=== PATIENT | female | born 1960 | race Caucasian/White ===

== ENCOUNTER 2016-11-27 21:12 | Emergency (ER) | payer OTHER ==
[2016-11-27 21:43] VITALS: BP 111/79
--- NOTE | 2016-11-27 22:48 | Emergency Department Report ---
Chief Complaint: Laceration/Recheck/Suture Stated Complaint: REMOVAL SUTURES Time Seen by Provider: 11/27/16 22:44 - HPI History of Present Illness: Patient presents for 3 suture removal from right thumb - ROS Review of Systems: All other systems unremarkable except documentation in HPI - Exam Vital Signs: Vital Signs 11/27/16 21:36 Temperature 98.6 F Pulse Rate 69 Respiratory 16 Rate Blood Pressure 111/79 O2 Sat by Pulse 100 Oximetry Physical Exam: Gen: A male well-developed and nourished, no apparent distress noted, ambulatory. Cardiovascular: Heart sounds present S1-S2, no murmur, gallop, edema or ectopy noted, 2+ pulses upper and lower extremities Respiratory: Chest symmetry with respirations, lungs clear to auscultate upper and lower lobes, respirations even and unlabored, no rales, rhonchi, crackles noted. Skin: Clean, dry, intact. Right thumb no swelling, redness, increasing. Wound is healing well. Psych: AxOx3, answers questions appropriately, mood full range, affect normal, normal speech and tone. MSE screening note: Focused history and physical exam performed. Due to findings the following was ordered: box nailer to remove 3 sutures to right thumb ED Medical Decision Making - Medical Decision Making Triage nurse Myrtle to remove 3 sutures from right thumb. ED Disposition for MSE Condition: Stable
== END 2016-11-27 21:59 | disposition home or self-care (01) ==
LOC: ED 21:12
DX: Z48.02 Encounter for removal of sutures (principal)

== ENCOUNTER 2018-03-08 06:41 | Emergency (ER) | payer OTHER ==
[2018-03-08] MEDS ORDERED: ASPIRIN PO ONE (07:04)
[2018-03-08 07:27] LABS: Basophils # (Auto) 0.1 K/mm3 (0.0-0.1); Basophils % (Auto) 0.9 % (0.0-1.8); Eosinophils # (Auto) 0.1 K/mm3 (0.0-0.4); Hematocrit 41.3 % (30.3-42.9); Hemoglobin 13.9 gm/dl (10.1-14.3); Lymphocytes # (Auto) 1.4 K/mm3 (1.2-5.4); Lymphocytes % (Auto) 16.4 % (13.4-35.0); Mean Corpuscular HGB Conc 34 % (30-34); Mean Corpuscular Hemoglobin 27 pg (28-32); Mean Corpuscular Volume 81 fl (79-97); Monocytes # (Auto) 0.9 K/mm3 (0.0-0.8); Monocytes % (Auto) 10.8 % (0.0-7.3); Platelet Count 180 K/mm3 (140-440); Red Blood Count 5.09 M/mm3 (3.65-5.03); Red Cell Distribution Width 14.1 % (13.2-15.2)
[2018-03-08 07:33] LABS: BUN/Creatinine Ratio 19; Blood Urea Nitrogen 13 mg/dL (7-17); Calcium 8.9 mg/dL (8.4-10.2); Hemolysis Index 2
--- NOTE | 2018-03-08 14:19 | Emergency Department Report ---
Blank Doc - Documentation Documentation: 57-year-old female who complains of productive cough 2 days, body aches, subjective fever, chest and upper back pain with coughing, and a burning feeling in her throat. Lungs currently clear Labs reviewed EKG review Chest x-ray ordered and pending
--- NOTE | 2018-03-08 14:41 | XRay Report ---
ROUTINE CHEST, TWO VIEWS: HISTORY: Cough, fever, wheezing. The trachea, heart, mediastinal contour, lung barragan and bony thorax are unremarkable. IMPRESSION: Unremarkable chest x-ray.
[2018-03-08] MEDS ORDERED: TESSALON PERLES PO ONE (15:46)
[2018-03-08] MEDS ORDERED: ASPIRIN ONE (15:49)
--- NOTE | 2018-03-08 15:56 | Emergency Department Report ---
- General Chief Complaint: Chest Pain Stated Complaint: CHEST,BACK PAIN,FEVER Time Seen by Provider: 03/08/18 14:14 Source: patient Mode of arrival: Ambulatory Limitations: No Limitations - History of Present Illness Initial Comments: This is a 57-year-old female nontoxic, well nourished in appearance, no acute signs of distress presents to the ED with c/o of productive cough, subjective fever, chills, body aches, rhinorrhea, nasal congestion x2 days. Patient also stated that during coughing episode she develops chest and upper back pain, otherwise patient denies any chest pain or back pain. Patient denies pluretic chest pain. Patient describes productive cough as yellow mucus production. Patient denies any sick contact. Patient denies any recent travels, long car, recent hospital stays. Patient denies any calf pain or calf tenderness. Patient denies any chest pain, short of breath, fever, chills, nausea, vomiting , hemoptysis, numbness, tingling, headache or stiff neck. Patient denies any allergies or significant PMH. MD Complaint: cough, rhinorrhea, nasal congestion, other (chest pain/back pain) -: days(s) (2) Severity: mild Severity scale (0 -10): 8 Quality: aching Consistency: constant Improves With: nothing Worsens With: nothing Associated Symptoms: fever, chills, rhinorrhea, nasal congestion, cough. denies : myalgias, diaphoresis, headache, sore throat, stiff neck, chest pain, shortness of breath, abdominal pain, nausea, vomiting, diarrhea, dysuria, rash, confusion, right sweats, weight loss, epistaxis, hoarseness, ear pain Treatments Prior to Arrival: none - Related Data Previous Rx's Medication Instructions Recorded Last Taken Type Cephalexin [Keflex] 500 mg PO Q12HR #10 cap 11/20/16 Unknown Rx Ibuprofen [Motrin 800 MG tab] 800 mg PO TID PRN #25 tablet 11/20/16 Unknown Rx Azithromycin [Zithromax Z-FANTASMA] 250 mg PO DAILY #6 tablet 03/08/18 Unknown Rx Benzonatate [Tessalon Perle] 100 mg PO Q8H PRN #20 capsule 03/08/18 Unknown Rx Ibuprofen [Motrin] 600 mg PO Q8H PRN #30 tablet 03/08/18 Unknown Rx Prednisone [predniSONE 10 mg 10 mg PO .TAPER #1 tab.ds.pk 03/08/18 Unknown Rx (6-Day Pack, 21 Tabs)] Allergies Allergy/AdvReac Type Severity Reaction Status Date / Time No Known Allergies Allergy Verified 11/04/13 20:21 ED Review of Systems ROS: Stated complaint: CHEST,BACK PAIN,FEVER Other details as noted in HPI Constitutional: denies: chills, fever Eyes: denies: eye pain, eye discharge, vision change ENT: denies: ear pain, throat pain Respiratory: cough. denies: shortness of breath, wheezing Cardiovascular: denies: chest pain, palpitations Endocrine: no symptoms reported Gastrointestinal: denies: abdominal pain, nausea, diarrhea Genitourinary: denies: urgency, dysuria, discharge Musculoskeletal: denies: back pain, joint swelling, arthralgia Skin: denies: rash, lesions Neurological: denies: headache, weakness, paresthesias Psychiatric: denies: anxiety, depression Hematological/Lymphatic: denies: easy bleeding, easy bruising ED Past Medical Hx - Past Medical History Additional medical history: thyroid - Surgical History Hx Cholecystectomy: Yes - Social History Smoking Status: Never Smoker Substance Use Type: None - Medications Home Medications: Home Medications Medication Instructions Recorded Confirmed Last Taken Type Cephalexin [Keflex] 500 mg PO Q12HR #10 cap 11/20/16 Unknown Rx Ibuprofen [Motrin 800 MG tab] 800 mg PO TID PRN #25 tablet 11/20/16 Unknown Rx Azithromycin [Zithromax Z-FANTASMA] 250 mg PO DAILY #6 tablet 03/08/18 Unknown Rx Benzonatate [Tessalon Perle] 100 mg PO Q8H PRN #20 capsule 03/08/18 Unknown Rx Ibuprofen [Motrin] 600 mg PO Q8H PRN #30 tablet 03/08/18 Unknown Rx Prednisone [predniSONE 10 mg 10 mg PO .TAPER #1 tab.ds.pk 03/08/18 Unknown Rx (6-Day Pack, 21 Tabs)] ED Physical Exam - General Limitations: No Limitations General appearance: alert, in no apparent distress - Head Head exam: Present: atraumatic, normocephalic - Eye Eye exam: Present: normal appearance Pupils: Present: normal accommodation - ENT ENT exam: Present: normal exam, normal orophraynx, mucous membranes moist, TM's normal bilaterally, normal external ear exam - Neck Neck exam: Present: normal inspection, full ROM. Absent: tenderness, meningismus, lymphadenopathy - Respiratory Respiratory exam: Present: normal lung sounds bilaterally. Absent: respiratory distress, wheezes, rales, rhonchi, stridor, chest wall tenderness, accessory muscle use, decreased breath sounds, prolonged expiratory - Cardiovascular Cardiovascular Exam: Present: regular rate, normal rhythm, normal heart sounds. Absent: irregular rhythm, systolic murmur, diastolic murmur, rubs, gallop - GI/Abdominal GI/Abdominal exam: Present: soft, normal bowel sounds - Rectal Rectal exam: Present: deferred - Extremities Exam Extremities exam: Present: normal inspection, full ROM, normal capillary refill - Back Exam Back exam: Present: normal inspection, full ROM. Absent: tenderness, CVA tenderness (R), CVA tenderness (L), muscle spasm, paraspinal tenderness, vertebral tenderness, rash noted - Neurological Exam Neurological exam: Present: alert, oriented X3, normal gait - Psychiatric Psychiatric exam: Present: normal affect, normal mood - Skin Skin exam: Present: warm, dry, intact, normal color. Absent: rash ED Course Vital Signs 03/08/18 03/08/18 07:01 16:01 Temperature 98 F 99.2 F Pulse Rate 100 H 86 Respiratory 18 18 Rate Blood Pressure 140/78 Blood Pressure 108/71 [Left] O2 Sat by Pulse 99 96 Oximetry - Reevaluation(s) Reevaluation #1: 03/08/18 15:59 Patient is speaking in full sentences with no signs of distress noted. - Consultations Consultation #1: 03/08/18 16:00 Patient has been consulted with Dr. Toussaint about patient history, physical exam, and labs and examined and screened patient and agrees to ED plan of care and discharge plan of care. ED Medical Decision Making - Lab Data Result diagrams: 03/08/18 07:08 03/08/18 07:08 - EKG Data When compared to previous EKG there are: no significant change Interpretation: no acute changes, normal EKG, other (no ST abnormalities. ) 03/08/18 16:[address] Toussaint. - Medical Decision Making This is a 57-year-old female that presents with bronchitis. Patient is stable and was examined by me. Chest x-ray has been obtained and dictated by radiologist with normal exam. EKG normal sinus rhythm. Patient is notified of x-ray results with no questions noted. Due to patient having symptoms of bronchitis and worsening I will treat patient empirically with zpak. Patient was instructed to increase hydration, rest and take Motrin for fever episodes. Patient received tesslone perrls in the ED. Labs within normal limits. Negative trop x3. Wells criteria 0 points for PE/DVT risk factors. Vitals stable. Patient is nonfebrile and normal heart rate. Patient was instructed Follow-up with a primary care doctor in 3-5 days or if symptoms worsen and continue return to emergency room as soon as possible. At time time of discharge, the patient does not seem toxic or ill in appearance. No acute signs of distress noted. Patient agrees to discharge treatment plan of care. No further questions noted by the patient. Critical care attestation.: If time is entered above; I have spent that time in minutes in the direct care of this critically ill patient, excluding procedure time. ED Disposition Clinical Impression: Acute bronchitis Qualifiers: Bronchitis organism: unspecified organism Qualified Code(s): J20.9 - Acute bronchitis, unspecified Upper respiratory infection Qualifiers: URI type: unspecified URI Qualified Code(s): J06.9 - Acute upper respiratory infection, unspecified Disposition: DC-01 TO HOME OR SELFCARE Is pt being admited?: No Does the pt Need Aspirin: No Condition: Stable Instructions: Benzonatate (By mouth), Prednisone (By mouth), Azithromycin (By mouth), Upper Respiratory Infection (ED), Acute Bronchitis (ED) Additional Instructions: Follow-up with a primary care doctor in 3-5 days or if symptoms worsen and continue return to emergency room as soon as possible. Prescriptions: Azithromycin [Zithromax Z-FANTASMA] 250 mg PO DAILY #6 tablet Benzonatate [Tessalon Perle] 100 mg PO Q8H PRN #20 capsule PRN Reason: Cough Ibuprofen [Motrin] 600 mg PO Q8H PRN #30 tablet PRN Reason: Pain Prednisone [predniSONE 10 mg (6-Day Pack, 21 Tabs)] 10 mg PO .TAPER #1 tab.ds.pk Referrals: HECTOR COYNE MD [Primary Care Provider] - 3-5 Days MADELYN BEACH MD [Staff Physician] - 3-5 Days [facility] [Outside] - 3-5 Days [facility] [Outside] - 3-5 Days Forms: Work/School Release Form(ED)
[2018-03-08 16:02] VITALS: BP 108/71
== END 2018-03-08 16:12 | disposition home or self-care (01) ==
LOC: ED 06:41
DX: J20.9 Acute bronchitis, unspecified (principal); J06.9 Acute upper respiratory infection, unspecified
CPT/HCPCS: 36415; 71046; 80048; 84484; 85025; 93005; 93010